=== PATIENT | male | born 1990 | race Caucasian/White ===

== ENCOUNTER 2017-11-08 22:28 | Inpatient (IN) ==
[2017-11-13] MEDS ORDERED: Aluminum/Magnesium/Simethacone Susp 30 ML UDC PO PRN (08:32)
[2017-11-13] MEDS ORDERED: Acetaminophen 325 MG Tablet PO PRN (08:32)
[2017-11-13] MEDS ORDERED: traZODone 50 MG Tablet PO PRN (08:37)
[2017-11-13] MEDS ORDERED: Multivitamin/Minerals Therapeutic Tablet ONE (08:38)
[2017-11-13] MEDS ORDERED: LORazepam 1 MG Tablet PO PRN (08:38)
[2017-11-13] MEDS ORDERED: Multivitamin/Minerals Therapeutic Tablet PO SCH (09:00)
[2017-11-13] MEDS ORDERED: Folic Acid 1 MG Tablet PO SCH (09:00)
[2017-11-13] MEDS: buPROPion 150 MG 12 HR Tablet PO SCH (11:58)
--- NOTE | 2017-11-13 14:28 | P.PNPSY ---
Subjective Remarks: Patient was seen and case discussed with nursing. Patient is pleasant and cooperative with exam. She is bright and cheerful during the interview. His been having productive visits with his family. Mood today is "a little tired." Social on the unit. He denies suicidal or homicidal ideation intent or plan. Spending the day watching soccer Mental Status Examination Appearance: Appropriate Consciousness: Alert Orientation: x4 Motor Activity: Normal gait Speech: Unremarkable Language: Adequate Fund of Knowledge: Adequate Attention and Concentration: Adequate Memory: Unremarkable Mood: Appropriate Affect: Appropriate Thought Process & Associations: Intact Thought Content: Appropriate Hallucination Type: None Delusion Type: None Suicidal Ideation: No Suicidal Plan: No Suicidal Intention: No Homicidal Ideation: No Homicidal Plan: No Homicidal Intention: No Insight: Adequate Judgment: Adequate Assessment and Plan - Assessment (1) Major depressive disorder, recurrent severe without psychotic features Code(s): F33.2 - Major depressive disorder, recurrent severe without psychotic features Status: Acute - Plan Plan: Estimated LOS: [] days Continue current treatment plan. Consider discharge tomorrow Justification for Continued Inpatient Stay: Patient would decompensate in a less restrictive setting and just had suicidal ideation a couple days ago.
[2017-11-14] MEDS: buPROPion 150 MG 12 HR Tablet PO SCH (08:31)
--- NOTE | 2017-11-14 14:25 | P.DSPSY ---
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 Reviewing the electronic medical record, it appears this is patient's first visit to [facility]. Patient seen and examined with counselor. Chart reviewed. Case discussed with nurse and counselor. No behavioral issues noted overnight. On my examination today, patient reports he began to feel depressed most recently about 1 year ago. He has had previous episodes of depression in the past, starting in high school. He reports that he saw his PCP who started him on Celexa and has since followed up with Dr. Moore who has titrated the dose of this agent to 40mg/day. Although he experienced some initial benefit from the Celexa, he has over the last 4 months experienced recrudescence of depressive symptoms. In addition to low mood he endorses poor sleep, lack of motivation, anhedonia and associated anxious distress including occasional panic attacks. He says that he began to experience suicidal ideation about 4 months ago, initially transient and mild but more recently more persistent and difficult to ignore. He has contemplated hanging himself or cutting himself in the bath or shooting himself with his gun. He does note that he gave his gun to his father for self-keeping and no longer has any access to firearms. He does contract for safety on the inpatient unit. I can elicit no hypomanic or manic symptoms presently, nor does he have any history of same with close questioning. He denies ever having experienced audiovisual hallucinations, nor can I elicit any delusional beliefs. He denies any trauma history and reports no symptoms of PTSD. The remainder of the psychiatric ROS is negative. No acute physical complaints. Past psychiatric history: The patient reports a history of depression and anxiety. He has previously been treated with Wellbutrin, which reportedly helped and which he only stopped because he was feeling improved. More recently he is on Celexa. He follows psychiatrically with Dr. Moore and has a psychotherapist, Breanna Pacheco (sp?), both of whom he has seen for 2-3 visits. He denies any history of psychiatric admissions. He denies any history of suicide attempts or nonsuicidal self-injurious behavior. Family history: The patient reports that his mother struggles with depression. His father has anxiety and also takes Celexa. He is unsure what his mother takes if anything. He denies a family history of suicide. He does report that his paternal grandfather struggled with alcoholism and his maternal uncle was addicted to drugs. Chemical dependency history: The patient reports that he is an infrequent drinker. He has perhaps 3 beers at one sitting but does not drink this heavily every day. He does admit to blacking out during a beer festival in the last year. He denies any other consequences from his alcohol use. He denies any history of DTs or seizures. He does endorse occasional use of cannabis, which he finds helpful somewhat for his psychiatric complaints. He denies any other substance use. He denies any use of tobacco. Social history: The patient lives with his parents. 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 He is presently single and notes that he struggled after his most recent long-term relationship of 5 years and dated 2 -1/2 years ago. He has no children. He denies any history. Denies any legal history. His firearm has reportedly been secured by his father. He denies any history of trauma. Tobacco Use In Past 30 Days: No How Often Do You Have a Drink Containing Alcohol: 4 or more times a week Hospital Course: Patient was admitted to a locked, inpatient psychiatric unit. Appropriate precautions were in place throughout patient's hospital stay. Patient was seen and examined on the unit by psychiatry and also visited by counselor. Psychotropic medications were adjusted. Patient tolerated medication changes well without side effects. Patient had improvement in presenting psychiatric symptomatology during the course of his hospital stay. There was no evidence of any suicidality or homicidality on the inpatient unit. There was no evidence of self-care deficit. The patient remained in good behavioral control and was medication compliant. Collateral information was obtained from the patient's father. On the day of discharge: Patient seen and examined with nurse. Chart reviewed. Case discussed with nursing staff. No behavioral issues noted overnight. On my examination today, the patient is requesting discharge from the inpatient psychiatric unit today. He denies any suicidal or homicidal ideation, intent or plan and contracts for safety. I can elicit no depressive or hypomanic/manic symptoms. He has no audiovisual hallucinations. I can elicit no delusional material. There is no evidence of any impairment in reality construction. He denies side effects from medications. He has no physical complaints. Weighing the relevant factors and based on the available evidence, I steam powerplant supervisor that the patient does not meet criteria for involuntary psychiatric hospitalization. There is no evidence of imminent risk of harm to self or others, nor is there evidence of self-care deficit to substantiate involuntary psychiatric hospitalization. The patient is requesting discharge from the inpatient psychiatric unit today, and I have no basis to retain him over his objection. Patient will be discharged home today with psychiatric follow-up as arranged by counselor. Patient is also to follow up with primary care. I have counseled the patient to abstain from substances of abuse. I have counseled the patient regarding warning signs for need to return to the psychiatric emergency room as part of a general safety plan. - Discharge Discharge Date: 11/14/17 - Discharge Diagnosis (1) Major depressive disorder, recurrent severe without psychotic features Code(s): F33.2 - Major depressive disorder, recurrent severe without psychotic features Status: Resolved Discharge Disposition: Home - Discharge Instructions Discharge Diet: Regular Diet Activities You Can Perform: Weight Bearing As Tolerat - Discharge Time <= 30 minutes Mental Status Examination Appearance: Appropriate Consciousness: Alert Orientation: x4 Motor Activity: Normal gait, Other (No motor abnormalities noted) Speech: Unremarkable Language: Adequate Fund of Knowledge: Adequate Attention and Concentration: Adequate Memory: Unremarkable Mood: Appropriate Affect: Appropriate, Euthymic Thought Process & Associations: Intact, Logical, Goal directed, Linear Thought Content: Appropriate Hallucination Type: None Delusion Type: None Suicidal Ideation: No Suicidal Plan: No Suicidal Intention: No Homicidal Ideation: No Homicidal Plan: No Homicidal Intention: No Insight: Adequate Judgment: Adequate Discharge/Advance Care Plan - Results Vital Signs: Last Vital Signs Temp 97 F L 11/13/17 05:49 Pulse 71 11/13/17 05:49 Resp 18 11/13/17 05:49 BP 120/78 11/13/17 05:49 Pulse Ox 99 11/13/17 05:49 Lab Results: Laboratory Results Hemoglobin A1c 6.0 % (4.3-6.0) 11/09/17 10:00 Triglycerides 195 MG/DL (42-150) H 11/09/17 10:00 Cholesterol 142 MG/DL (120-200) 11/09/17 10:00 HDL Cholesterol 36.4 MG/DL (40.0-60.0) L 11/09/17 10:00 Summary of Procedures: None done Pending Results: None - Medications Number of antipsychotic medications at discharge: 0 - Discharge Care Plan Goals to Promote Your Health: * To prevent worsening of your condition and complications * To maintain your health at the optimal level Directions to Meet Your Goals: Take your medications as prescribed Follow your dietary instruction Follow activity as directed Keep your appointments as scheduled Take your immunizations and boosters as scheduled If your symptoms worsen call your PCP, if no PCP go to Urgent Care Center or Emergency Room For 06/12 questions related to your inpatient stay or results of tests pending at discharge, please contact Dr. Haile Khan MD at Smoking is Dangerous to Your Health. Avoid second hand smoking
== END 2017-11-14 16:25 | disposition home or self-care (01) ==
LOC: UNDODISIN → H260 11-09 01:33
PROVIDERS: ADMIT Psychiatry & Neurology Psychiatry; ATTEND Psychiatry & Neurology Psychiatry